=== PATIENT | male | born 1965 | race Hispanic/Latino ===

== ENCOUNTER 2024-03-15 03:48 | Emergency (ER) | payer SELFPAY ==
[2024-03-15 05:26] LABS: Absolute Eosinophils 0.2 K/uL (0-0.5); Absolute Lymphocytes (CBC) 2.1 K/uL (0.7-4.9); Absolute Monocytes 0.6 K/uL (0.1-1.3); Absolute Neutrophil 5.8 K/uL (1.8-8.0); Basophils % 0.3 % (0-1.3); Eosinophils % 1.7 % (0-4.4); Hematocrit 44.6 % (39.6-49.0); Hemoglobin 15.2 g/dL (13.6-17.9); Lymphocytes % 24.5 % (15.3-44.8); MCH 29.4 pg (27.0-35.0); MCV 86.5 fL (80-100); MPV 8.9 fL (7.6-11.3); Neutrophils % 66.5 % (41.7-73.7); Nucleated Red Blood Cells % 0.2 % (0-0); Platelets 222 thou/uL (152-406); RBC Red Blood Cell Count 5.15 M/uL (4.33-5.43)
[2024-03-15] MEDS ORDERED: HALOPERIDOL LACT 5 MG/ML INJ ONE (05:27)
[2024-03-15 05:37] LABS: Albumin 4.1 g/dL (3.4-5.0); Albumin/Globulin Ratio 0.9 (1.1-1.8); Anion Gap 6.4 mEq/L (5.0-15.0); Bilirubin Total 0.3 mg/dL (0.2-1.0); C-Reactive Protein 5.7 mg/L (<3.00); Globulin 4.5 g/dL (2.3-3.5); Potassium 3.4 mEq/L (3.5-5.1); Protein, Total 8.6 g/dL (6.4-8.2)
--- NOTE | 2024-03-15 07:36 | EDPHYS ---
Physician Documentation [facility] Name: Hola Ortiz Age: 58 yrs Sex: Male : 1965 Arrival Date: 03/15/2024 Time: 03:48 Bed 6 Private MD: ED Physician Colin Alejandro HPI: 03/15 04:12 This 58 yrs old Male presents to ER via Unassigned with complaints of sp4 Abdominal Pain, Nausea/Vomiting. 06:13 Patient presents with acute onset moderate to severe abdominal pain diffusely sp4 associated with vomiting. Patient states he has not had similar pain in the past. Pain started acutely 2 hours prior to arrival. Historical: - Allergies: 04:33 No Known Allergies; vc1 - Home Meds: 04:33 None [Active]; vc1 - PMHx: 04:33 Diabetes mellitus; vc1 - PSHx: 04:33 None; vc1 - Immunization history:: Client reports having NOT received the Covid vaccine. Flu vaccine status is unknown. - Infectious Disease History:: Denies. - Social history:: Smoking status: Patient reports the use of cigarette tobacco products, 5 cigs/day. - Family history:: not pertinent. ROS: 06:13 Constitutional: Negative for fever, chills, and weight loss, Eyes: Negative for injury, sp4 pain, redness, and discharge, ENT: Negative for injury, pain, and discharge, Abdomen/GI: Positive diffuse abdominal pain, positive nausea positive vomiting 06:13 All other systems are negative, Exam: 06:13 Constitutional: This is a well developed, well nourished patient who is awake, alert, sp4 and in no acute distress. Head/Face: Normocephalic, atraumatic. Eyes: Pupils equal round and reactive to light, extra-ocular motions intact. Lids and lashes normal. Conjunctiva and sclera are not injected. Cornea within normal limits. Periorbital areas with no swelling, redness, or edema. ENT: Nares patent. No nasal discharge, no septal abnormalities noted. Tympanic membranes are normal and external auditory canals are clear. Oropharynx with no redness, swelling, or masses, exudates, or evidence of obstruction, uvula midline. Mucous membranes moist. Neck: Trachea midline, no thyromegaly or masses palpated, and no cervical lymphadenopathy. Supple, full range of motion without nuchal rigidity, or vertebral point tenderness. Chest/axilla: Normal chest wall appearance and motion. Nontender with no deformity. No lesions are appreciated. Cardiovascular: Regular rate and rhythm with a normal S1 and S2. No gallops, murmurs, or rubs. Normal PMI, no JVD. No pulse deficits. Respiratory: Lungs have equal breath sounds bilaterally, clear to auscultation and percussion. No rales, rhonchi or wheezes noted. No increased work of breathing, no retractions or nasal flaring. Abdomen/GI: Soft, with normal bowel sounds. No distension or tympany. No guarding or rebound. Positive for diffuse abdominal tenderness Back: No spinal tenderness. No costovertebral tenderness. Skin: Warm, dry with normal turgor. Normal color with no rashes, no lesions, and no evidence of cellulitis. MS/ Extremity: Pulses equal, no cyanosis. Neurovascular intact. Full, normal range of motion. Neuro: Awake and alert, GCS 15, oriented to person, place, time, and situation. Cranial nerves II-XII grossly intact. Motor strength 5/5 in all extremities. Sensory grossly intact. Psych: Awake, alert, with orientation to person, place and time. Behavior, mood, and affect are within normal limits Vital Signs: 04:28 BP 188 / 84; Pulse 60; Resp 16; Temp 97.2; Pulse Ox 100% ; Weight 95.25 kg; Height 5 vc1 ft. 7 in. ; Pain 10/10; 05:31 BP 160 / 76; Pulse 61; Resp 17; Pulse Ox 100% ; jj7 06:30 BP 146 / 75; Pulse 63; Resp 16 S; Pulse Ox 99% on R/A; jw7 07:46 Temp 97.9; ph 04:28 Body Mass Index 32.89 (95.25 kg, 170.18 cm) vc1 04:28 Pain Scale: Adult vc1 Didi Coma Score: 06:17 Eye Response: spontaneous(4). Motor Response: obeys commands(6). Verbal Response: sp4 oriented(5). Total: 15. MDM: 04:17 Patient medically screened. sp4 06:24 ED course: FINDINGS: Lung bases: Unremarkable. No mass. No consolidation. ABDOMEN: sp4 Liver: Unremarkable. No mass. Gallbladder and bile ducts: Suspect cholelithiasis. No ductal dilation. Pancreas: No findings to suggest acute pancreatitis. No mass visualized. No ductal dilation. Spleen: Unremarkable. No splenomegaly. Adrenals: Unremarkable. No mass. Kidneys and ureters: Unremarkable. No solid mass. No hydronephrosis. Stomach and bowel: Colonic diverticulosis. No bowel dilatation or obstruction. No bowel wall thickening. PELVIS: Appendix: The visualized appendix is normal. No pericecal inflammation to suggest acute appendicitis. Bladder: Unremarkable. No mass. Reproductive: Enlarged prostate gland. ABDOMEN and PELVIS: Intraperitoneal space: Unremarkable. No free air. No significant fluid collection. Bones/joints: L4-5 vacuum disc phenomenon. No acute fracture visualized. No dislocation. Soft tissues: Unremarkable. Vasculature: Unremarkable. No abdominal aortic aneurysm. Lymph nodes: No pathologically enlarged lymph nodes. IMPRESSION: 1. Suspect cholelithiasis. Ultrasound follow-up recommended. 2. Colonic diverticulosis. 3. Enlarged prostate gland. Electronically signed by: Mariama Hernández MD 03/15/2024 06:14 AM. 07:35 ED course: Sonogram Report - positive for few stones seen; no wall thickening; no sp4 pericholecystic fluid, cbd normal, neg for buchanan's sign.. 20:41 Differential diagnosis: Nonspecific abd pain, gastritis, cholecystitis, pancreatitis, sp4 appendicitis, diverticulitis, viral gastroenteritis, gastroenteritis. Data reviewed: vital signs, nurses notes, old medical records, lab test result(s), radiologic studies, CT scan, ultrasound. ED course: EXAM DESCRIPTION: US - Abdomen Exam Limited - 03/15/2024 6:31 am CLINICAL HISTORY: ABD PAIN COMPARISON: No comparisons TECHNIQUE: Sonographic grayscale and color flow images of the right upper abdominal quadrant were obtained. FINDINGS: The gallbladder demonstrates small amount of layering sludge near the neck, and at least 2 echogenic shadowing calculi near the fundus up to 9 mm in size. No pericholecystic fluid or gallbladder wall thickening. The common bile duct is normal measuring 4 mm. The liver demonstrates no findings of intrahepatic biliary dilatation. IMPRESSION: Cholelithiasis and sludge. No evidence of acute cholecystitis.. 03/15 04:17 Order name: CBC with Diff; Complete Time: 06:12 sp4 03/15 04:17 Order name: CMP; Complete Time: 06:12 sp4 03/15 04:17 Order name: Lipase; Complete Time: 06:12 sp4 03/15 04:17 Order name: CRP; Complete Time: 06:12 sp4 03/15 04:17 Order name: Abdomen Limited US sp4 03/15 04:17 Order name: CT Abd/Pelvis - IV Contrast Only sp4 03/15 04:17 Order name: IV Saline Lock; Complete Time: 04:38 sp4 03/15 04:17 Order name: Labs collected and sent; Complete Time: 04:38 sp4 Administered Medications: 04:34 Drug: NS 0.9% IV 1000 ml IV at 1 bolus Per protocol; 1000 mL bolus Route: IV; Rate: 1 jj7 bolus; Site: right antecubital; 06:50 Follow up: Response: No adverse reaction; IV Status: Completed infusion; IV Intake: jw7 1000ml 04:34 Drug: Famotidine IVP 20 mg IVP once; dilute with 10 mL 0.9% NaCl; give over 2 minutes jj7 Route: IVP; Site: right antecubital; 05:30 Follow up: Response: Marked relief of symptoms jj7 06:49 Follow up: Response: No adverse reaction; Marked relief of symptoms jw7 04:34 Drug: Ondansetron IVP 8 mg IVP once; over 2 minutes Route: IVP; Site: right antecubital;jj7 05:31 Follow up: Response: Marked relief of symptoms; Pain is decreased; Nausea is decreased jj7 06:50 Follow up: Response: No adverse reaction; Marked relief of symptoms; Nausea is decreasedjw7 04:35 Drug: TORadol - Ketorolac IVP 30 mg IVP once Route: IVP; Site: right antecubital; jj7 05:30 Follow up: Response: Marked relief of symptoms; Pain is decreased jj7 04:36 Drug: morphine IVP or IV 6 mg IVP once over 4 mins Route: IVP; Infused Over: 4 mins; jj7 Site: right antecubital; 05:30 Follow up: Response: Marked relief of symptoms; Pain is decreased jj7 05:30 Drug: Haloperidol IVP 2.5 mg/50 mL 2.5 mg IVP once; Place patient on a qa auditor jj7 Route: IVP; Site: right antecubital; 06:50 Follow up: Response: No adverse reaction; Marked relief of symptoms; Pain is decreased jw7 Disposition Summary: 03/15/24 07:36 Discharge Ordered Problem: new sp4 Symptoms: have improved sp4 Condition: Stable sp4 Diagnosis - Other cholelithiasis without obstruction sp4 - Cholelithiasis without cholecystitis sp4 Followup: sp4 - With: Chau Lilly MD - When: 7 - 10 days - Reason: Recheck today's complaints Discharge Instructions: - Discharge Summary Sheet sp4 - Cholelithiasis, [id number] sp4 Forms: - Patient Portal Instructions sp4 Prescriptions: - Tramadol 50 mg Oral tablet - take 1 tablet ORAL route every 8 hours as needed; 20 tablet; Refills: 0, sp4 Product Selection Permitted - promethazine 25 mg Oral tablet - take 1 tablet ORAL route every 6 hours As needed PRN nausea; 30 tablet; sp4 Refills: 0, Product Selection Permitted Signatures: Dispatcher [employer] Miriam Pradhan RN RN vc1 Karrie Camarena RN RN jj7 Colin Alejandro MD MD sp4 Alissa Galvin RN jw7 Corrections: (The following items were deleted from the chart) 05:19 05:19 C-REACTIVE PROTEIN+C.LAB.BRZ ordered. EDMS EDMS
--- NOTE | 2024-03-15 07:36 | ER ---
Nurse's Notes [facility] Name: Hola Ortiz Age: 58 yrs Sex: Male : 1965 Arrival Date: 03/15/2024 Time: 03:48 Bed 6 Private MD: Diagnosis: Other cholelithiasis without obstruction;Cholelithiasis without cholecystitis Presentation: 03/15 04:28 Chief complaint: Patient states: severe abdominal pain, vomit times one. Coronavirus vc1 screen: Client denies travel out of the [place] in the last 14 days. At this time, the client does not indicate any symptoms associated with coronavirus-19. Ebola Screen: Patient negative for fever greater than or equal to 101.5 degrees Fahrenheit, and additional compatible Ebola Virus Disease symptoms Patient denies exposure to infectious person. Patient denies travel to an Ebola-affected area in the 21 days before illness onset. No symptoms or risks identified at this time. Initial Sepsis Screen: Does the patient meet any 2 criteria? No. Patient's initial sepsis screen is negative. Does the patient have a suspected source of infection? No. Patient's initial sepsis screen is negative. Risk Assessment: Do you want to hurt yourself or someone else? Patient reports no desire to harm self or others. Onset of symptoms was March 15, 2024 at 01:00. Care prior to arrival: None. Activity prior to arrival: None. Mechanism of Injury: No Mechanism of Injury. Transition of care: patient was not received from another setting of care. 04:28 Method Of Arrival: Ambulatory vc1 04:28 Acuity: ANGELIQUE 3 vc1 Triage Assessment: 04:35 General: Appears distressed, uncomfortable, Behavior is cooperative, restless. Pain: vc1 Complains of pain in abdomen Pain does not radiate. Pain currently is 10 out of 10 on a pain scale. Quality of pain is described as sharp, Pain began suddenly, 3 hours ago. Is continuous, Noted to be grimacing, Also complains of nausea. EENT: No deficits noted. No signs and/or symptoms were reported regarding the EENT system. Neuro: Level of Consciousness is awake, alert, obeys commands, Oriented to person, place, time, situation, Appropriate for age. Cardiovascular: Patient's skin is warm and dry. Respiratory: Airway is patent Respiratory effort is even, unlabored, Respiratory pattern is regular, symmetrical. GI: Abdomen is flat, non-distended, Reports lower abdominal pain, upper abdominal pain, nausea, vomiting. Historical: - Allergies: 04:33 No Known Allergies; vc1 - Home Meds: 04:33 None [Active]; vc1 - PMHx: 04:33 Diabetes mellitus; vc1 - PSHx: 04:33 None; vc1 - Immunization history:: Client reports having NOT received the Covid vaccine. Flu vaccine status is unknown. - Infectious Disease History:: Denies. - Social history:: Smoking status: Patient reports the use of cigarette tobacco products, 5 cigs/day. - Family history:: not pertinent. Screenin:41 [facility] ED Fall Risk Assessment (Adult) History of falling in the last 3 months, jw7 including since admission No falls in past 3 months (0 pts) Confusion or Disorientation No (0 pts) Intoxicated or Sedated No (0 pts) Impaired Gait No (0 pts) Mobility Assist Device Used No (0 pt) Altered Elimination Yes (1 pt) Score/Fall Risk Level 0 - 2 = Low Risk Oriented to surroundings, Maintained a safe environment, Educated pt \T\ family on fall prevention, incl call for assistance when getting out of bed. Abuse screen: Denies threats or abuse. Denies injuries from another. Nutritional screening: No deficits noted. Tuberculosis screening: No symptoms or risk factors identified. Assessment: 04:39 General: Appears in no apparent distress. uncomfortable, Behavior is calm, cooperative. jw7 Pain: Complains of pain in abdomen Pain does not radiate. Pain currently is 10 out of 10 on a pain scale. Quality of pain is described as sharp, Pain began 3 hours ago. Is continuous, Noted to be grimacing, restless. Neuro: Level of Consciousness is awake, alert, obeys commands, Oriented to person, place, time, situation. Cardiovascular: Heart tones S1 S2 present Capillary refill < 3 seconds Clubbing of nail beds is absent JVD is absent Patient's skin is warm and dry. Respiratory: Airway is patent Trachea midline Respiratory effort is even, unlabored, Respiratory pattern is regular, symmetrical, Breath sounds are clear bilaterally. GI: Abdomen is round non-distended, Bowel sounds present X 4 quads. Abd is soft X 4 quads Abdomen is tender to palpation. : Reports inability to void. EENT: No deficits noted. No signs and/or symptoms were reported regarding the EENT system. Derm: Skin is intact, is healthy with good turgor, Skin is dry, Skin is normal, Skin temperature is warm. Musculoskeletal: Circulation, motion, and sensation intact. Range of motion: intact in all extremities. 05:30 Reassessment: Patient appears in no apparent distress at this time. No changes from critical access hospital previously documented assessment. Patient and/or family updated on plan of care and expected duration. Pain level reassessed. Patient is alert, oriented x 3, equal unlabored respirations, skin warm/dry/pink. 06:30 Reassessment: Patient appears in no apparent distress at this time. Patient and/or 7 family updated on plan of care and expected duration. Pain level reassessed. Patient is alert, oriented x 3, equal unlabored respirations, skin warm/dry/pink. Patient states feeling better. Patient states symptoms have improved. Vital Signs: 04:28 BP 188 / 84; Pulse 60; Resp 16; Temp 97.2; Pulse Ox 100% ; Weight 95.25 kg; Height 5 vc1 ft. 7 in. ; Pain 10/10; 05:31 BP 160 / 76; Pulse 61; Resp 17; Pulse Ox 100% ; jj7 06:30 BP 146 / 75; Pulse 63; Resp 16 S; Pulse Ox 99% on R/A; jw7 07:46 Temp 97.9; ph 04:28 Body Mass Index 32.89 (95.25 kg, 170.18 cm) vc1 04:28 Pain Scale: Adult vc1 Didi Coma Score: 06:17 Eye Response: spontaneous(4). Motor Response: obeys commands(6). Verbal Response: sp4 oriented(5). Total: 15. ED Course: 03:56 Patient arrived in ED. gm2 04:12 Colin Alejandro MD is Attending Physician. sp4 04:33 Triage completed. vc1 04:35 Arm band placed on left wrist. vc1 04:35 Initial lab(s) drawn, by al, sent to lab. Inserted saline lock: 20 gauge in right critical access hospital antecubital area, using aseptic technique. Blood collected. 04:41 Patient has correct armband on for positive identification. Bed in low position. Call jw7 light in reach. Provided Education on: Use of Call Light. 05:29 CMP Sent. jj7 05:29 Lipase Sent. jj7 05:29 Urinalysis w/ reflexes Sent. jj7 05:29 CRP Sent. jj7 05:55 CT Abd/Pelvis - IV Contrast Only In Process Unspecified. EDMS 05:56 Abdomen Limited US In Process Unspecified. EDMS 07:13 Report given to GUANAKO RN. jj7 07:18 Bree Patino RN is Primary Nurse. ph 07:35 Chau Lilly MD is Referral Physician. sp4 07:46 No provider procedures requiring assistance completed. IV discontinued, intact, ph bleeding controlled, No redness/swelling at site. Pressure dressing applied. Administered Medications: 04:34 Drug: NS 0.9% IV 1000 ml IV at 1 bolus Per protocol; 1000 mL bolus Route: IV; Rate: 1 jj7 bolus; Site: right antecubital; 06:50 Follow up: Response: No adverse reaction; IV Status: Completed infusion; IV Intake: jw7 1000ml 04:34 Drug: Famotidine IVP 20 mg IVP once; dilute with 10 mL 0.9% NaCl; give over 2 minutes jj7 Route: IVP; Site: right antecubital; 05:30 Follow up: Response: Marked relief of symptoms jj7 06:49 Follow up: Response: No adverse reaction; Marked relief of symptoms jw7 04:34 Drug: Ondansetron IVP 8 mg IVP once; over 2 minutes Route: IVP; Site: right antecubital;jj7 05:31 Follow up: Response: Marked relief of symptoms; Pain is decreased; Nausea is decreased jj7 06:50 Follow up: Response: No adverse reaction; Marked relief of symptoms; Nausea is decreasedjw7 04:35 Drug: TORadol - Ketorolac IVP 30 mg IVP once Route: IVP; Site: right antecubital; jj7 05:30 Follow up: Response: Marked relief of symptoms; Pain is decreased jj7 04:36 Drug: morphine IVP or IV 6 mg IVP once over 4 mins Route: IVP; Infused Over: 4 mins; jj7 Site: right antecubital; 05:30 Follow up: Response: Marked relief of symptoms; Pain is decreased jj7 05:30 Drug: Haloperidol IVP 2.5 mg/50 mL 2.5 mg IVP once; Place patient on a cardiac nurse specialist jj7 Route: IVP; Site: right antecubital; 06:50 Follow up: Response: No adverse reaction; Marked relief of symptoms; Pain is decreased jw7 Medication: 07:46 VIS not applicable for this client. ph Intake: 06:50 IV: 1000ml; Total: 1000ml. jw7 Outcome: 07:36 Discharge ordered by MD. roman 07:46 Discharged to home ambulatory, 07:46 Condition: good 07:46 Discharge instructions given to patient, Instructed on discharge instructions, follow up and referral plans. medication usage, Demonstrated understanding of instructions, follow-up care, medications, Prescriptions given X 2, 07:46 Patient left the ED. ph Signatures: Dispatcher [employer] EDBree Camargo RN RN ph Miriam Yuan RN RN vc1 Alissa Galvin RN RN jw7 Karrie Camarena RN RN jj7 Colin Alejandro MD MD sp4 Suad Saez 2
--- NOTE | 2024-03-15 08:33 | RAD REPORT ---
EXAM DESCRIPTION: US - Abdomen Exam Limited - 03/15/2024 6:31 am CLINICAL HISTORY: ABD PAIN COMPARISON: No comparisons TECHNIQUE: Sonographic grayscale and color flow images of the right upper abdominal quadrant were o btained. FINDINGS: The gallbladder demonstrates small amount of layering sludge near the neck, and at least 2 echogenic shadowing calculi near the fundus up to 9 mm in size. No pericholecystic fluid or gallblad anthony wall thickening. The common bile duct is normal measuring 4 mm. The liver demonstrates no findings of intrahepatic biliary dilatation. IMPRESSION: Cholelithiasis and sludge. No evidence of acute cholecystitis.
[2024-03-15 15:39] VITALS: BP 146/75; TEMP 97.9; O2SAT 99
--- NOTE | 2024-03-16 00:20 | RAD REPORT ---
EXAM DESCRIPTION: CT - Abdomen Pelvis W Contrast - 03/15/2024 6:45 am CLINICAL HISTORY: The patient is 58 years old and is Male; ABD PAIN TECHNIQUE: Axial computed tomography images of the abdomen and pelvis with intravenous contrast. S agittal and coronal reformatted images were created and reviewed. This CT exam was performed using one or more of the following dose reduction techniques: automated exposure control, adjustment of t he mA and/or kV according to patient size, and/or use of iterative reconstruction technique. COMPARISON: No relevant prior studies available. FINDINGS: Lung bases: Unremarkable. No mass. No consolidation. ABDOMEN: Liver: Unremarkable. No mass. Gallbladder and bile ducts: Suspect cholelithiasis. No ductal dilation. Pancreas: No findings to suggest acute pancreatitis. No mass visualized. No ductal dilation. Spleen: Unremarkable. No splenomegaly. Adrenals: Unremarkable. No mass. Kidneys and ureters: Unremarkable. No solid mass. No hydronephrosis. Stomach and bowel: Colonic diverticulosis. No bowel dilatation or obstruction. No bowel wall thickening. PELVIS: Appendix: The visualized appendix is normal. No pericecal inflammation to suggest acute appendici tis. Bladder: Unremarkable. No mass. Reproductive: Enlarged prostate gland. ABDOMEN and PELVIS: Intraperitoneal space: Unremarkable. No free air. No significant fluid collection. Bones/joints: L4-5 vacuum disc phenomenon. No acute fracture visualized. No dislocation. Soft tissues: Unremarkable. Vasculature: Unremarkable. No abdominal aortic aneurysm. Lymph nodes: No pathologically enlarged lymph nodes. IMPRESSION: 1. Suspect cholelithiasis. Ultrasound follow-up recommended. 2. Colonic diverticulosis. 3. Enlarged prostate gland. Electronically signed by: Mariama Hernández MD 03/15/2024 06:14 AM CDT Due to temporary technical issues with the PACS/Fluency reporting system, reports are being signed by the in house radiologists without review as a courtesy to insure prompt reporting. The interpreting radiologist is fully responsible for the content of the report.
== END 2024-03-15 07:46 | disposition home or self-care (01) ==
LOC: ER 03:48
DX: K80.80 Other cholelithiasis without obstruction (principal)
CPT/HCPCS: 36415; 74177; 76705; 80053; 83690; 85025; 86140; J1630; Q9967